=== PATIENT | female | born 1940 | race Caucasian/White ===

== ENCOUNTER 2024-03-14 11:58 | Emergency (ER) | payer MEDICARE, BC ==
[~2024-03-14] VITALS: Ht 152.4 cm; Wt 52.2 kg
[2024-03-14] MEDS ORDERED: ACETAMINOPHEN 650 MG SUPP.RECT RC ONE (12:30)
[2024-03-14] MEDS ORDERED: ACETAMINOPHEN 325 MG TABLET ONE (12:34)
[2024-03-14] MEDS: ACETAMINOPHEN 325 MG TABLET PO ONE (12:35)
[2024-03-14 13:46] VITALS: BP 168/97; O2SAT 97
== END 2024-03-14 13:47 | disposition home or self-care (01) ==
LOC: ER 11:58
DX: S70.11XA Contusion of right thigh, initial encounter (principal); E78.5 Hyperlipidemia, unspecified; W01.0XXA Fall on same level from slipping, tripping and stumbling without subsequent striking against object, initial encounter; Y93.89 Activity, other specified; Y92.89 Other specified places as the place of occurrence of the external cause; Y99.8 Other external cause status
CPT/HCPCS: A4606; A4663